=== PATIENT | male | born 1990 | race Hispanic/Latino ===

== ENCOUNTER → 2021-08-06 09:42 | Outpatient (CLI) | payer SELFPAY ==
--- NOTE | 2021-08-06 09:44 | RAD_ITS ---
STUDY: AIR CONTRAST ESOPHAGRAM AND UPPER GI SERIES REASON FOR EXAM: Male, 31 years old. K21.9 - Gastro-esophageal reflux disease without esophagitis FLUOROSCOPY TIME (if supplied): ( ) minutes/seconds TECHNIQUE: SINGLE CONTRAST AND AIR CONTRAST FLUOROSCOPIC IMAGES. COMPARISON: None. FINDINGS: The cervical esophagus demonstrates normal motility without aspiration. There is no stricture or extrinsic mass effect. No intraluminal polypoid mass is identified. The thoracic esophagus distends well without stricture or mucosal fold thickening. No mucosal ulcerations are identified. There is no extrinsic mass effect. There are no diverticula. No hiatal hernia or gastroesophageal reflux was identified. The stomach distends well without mucosal fold thickening or mucosal ulceration. There is no intraluminal mass. The duodenal bulb is freely distensible without deformity or ulceration. The duodenal sweep is normal in position and caliber. RAD/Upper GI w/BA Swallow IMPRESSION: Normal air-contrast upper GI series. Electronically Signed: Jeremiah Duncan MD at 12:52 EST , Service support ,
== END ==
LOC: RAD 09:43
PROVIDERS: Visit Provider Surgery
DX: K21.9 Gastro-esophageal reflux disease without esophagitis (principal); R13.10 Dysphagia, unspecified
CPT/HCPCS: 74246

== ENCOUNTER 2021-08-28 08:15 | Day surgery (SDC) | payer SELFPAY ==
[2021-08-28] VITALS (7 sets, daily range): BP systolic 89–98; BP diastolic 56–85; PULSE 56–68; RESP 16; TEMP 36.2–36.7; O2SAT 96–100; BMI 29.2
--- NOTE | 2021-08-28 08:35 | PCM.HP.BLA ---
History and Physical Date of Admission: 08/28/21 Date of Service: 07/25/21 MR#:[id number]:[id number]: ASHWIN TOSCANOep #:[id number]:1990 Provider:Dr. Prashanth Shaikh MDAge/Sex: 31/M [facility] Vital Signs 07/25/21 09:12 Height 5 ft 1 in Weight: 152 lb 8 oz BMI 28.8 BP 113/70 Blood Pressure Location Rt brachial Position Sitting Respiration 16 Pulse 70 Pulse Source NIBP Temp 97.7 F L Temp Source Temporal Pulse Oximetry (%) 97 Oxygen Delivery Method room air Intake Visit Reasons: Gastroesophageal reflux disease (GERD) Chief Complaint: GERD High Tension Tester Required: No Is patient in pain?: Yes (epigastric and throat burning ) Pain scale (1-10): 4 Allergies No Known Allergies Allergy (Verified 07/25/21 09:13) Medications dicyclomine 20 mg tablet ea PO 07/25/21 [History Confirmed 07/25/21] loperamide 2 mg capsule ea PO 07/25/21 [History Confirmed 07/25/21] omeprazole 40 mg capsule,delayed release ea PO 07/25/21 [History Confirmed 07/25/21] sucralfate 100 mg/mL oral suspension 5 ml PO QACHS ml 07/25/21 [History Confirmed 07/25/21] PFSH Medical History (Updated 07/25/21 @ 17:[address] Prashanth Shaikh MD) Diarrhea Gastroesophageal reflux disease Surgical History (Updated 07/25/21 @ 09:12 by Tayler Curran) No significant past surgical history Family History (Updated 07/25/21 @ 09:12 by Tayler Curran) Father No problems noted. HPI HPI HPI: ASHWIN PAREDES, is a 31 M, Czech-speaking only, who presents to the office today primary lady for complaints of reflux. 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 Tello Paredes's symptoms have been present for the last 2 years but have been progressing in severity and frequency. He states that multiple times a day he experiences burning and pain in his throat like phlegm developing there. He denies this occurring at any particular time of day but states that it is worse with eating carbohydrates or spicy foods. He does find himself needing to prop his head up in the evenings and will frequently awaken with a burning throat. He states that he feels almost like he is drowning when he wakes up with these symptoms. He notes approximately 23 pound weight loss over the last 6 months that has been unintentional but directly related to the symptoms. He additionally has had some cold?like symptoms and frequent upper respiratory tract infections. He repeatedly denies any experience of nausea or vomiting. Patient was initially sent to for consideration of possible biliary colic. However he denies any abdominal pain after eating and states this is clearly his throat. Added to this, he also denies any pain originating in his right upper quadrant and wrapping around to his back. Furthermore patient was sent with a complete abdominal ultrasound dated 06/13/2021 which demonstrated a gallbladder normal in size with no gallbladder wall thickening, no gallstones, and no sonographic Cano sign. ROS General General: No weight change, appetite, fatigue, colon cancer, breast cancer or weakness HEENT HEENT: No difficulty swallowing, eye injury, eye surgery, swollen glands or hoarseness Endo Endocrine: No thyroid disease, diabetes mellitus, thyroid cancer, Hair loss, heat intolerance or cold intolerance Cardio Cardiovascular: No murmur, pacemaker, heart disease, atrial fibrillation, high blood pressure, heart attack, heart stent, palpitations, shortness of breat with exertion or chest pain Psych Psychiatric: No depression, anxiety or hearing voices Resp Respiratory: No shortness of breath, No sleep apnea, No cough, No COPD, No asthma, No emphysema and No wheezing Gastro Gastrointestinal: Yes abdominal pain, No nausea or vomiting, Yes diarrhea, No constipation, No blood in stool, Yes acid reflux, No hemorrhoids, No ulcers, No gallbladder problem and No black,tarry stools [place]ma Hematologic: No blood thinners, No blood disorders, No bleeding, No anemia and No blood clots Neuro Neurologic: No weakness Exam Const General: cooperative, no acute distress and anxious Limitations: language barrier Resp Effort & Inspection: normal respiratory effort Auscultation: no rales, no rhonchi and no wheezes Cardio Rate: regular rate Rhythm: regular rhythm Heart Sounds: S1 normal and S2 normal GI Inspection: normal to inspection, non-distended, no obesity and no scars Palpation: soft and tender in the epigastrum (Mildly focally tender in the epigastrium with deep palpation) and other (No right upper quadrant tenderness); Cano's sign negative Assessment and Plan Assessment and Plan (1) Gastroesophageal reflux disease: Status: Acute Comment: This is a 31-year-old male who is presenting with a 2-year history of symptoms most suggestive of gastroesophageal reflux disease. There was some concern for possible biliary colic, however, the descriptions more closely match reflux and his exam is not supportive of a gallbladder source. Additionally, ultrasound imaging from June 2021 was normal for gallbladder anatomy. Regarding his reflux issues, patient states that he has had some relief of symptoms with taking Protonix but this is far from complete and simultaneously he has noted a progression of the symptoms for both their intensity and frequency. Therefore, I recommend we pursue a work-up of this reflux with radiographic imaging and endoscopy. Orders: Orders: Upper GI w/BA Swallow Today Plan - Dr. Prashanth Shiakh MD: ?Barium esophagram to be completed at earliest convenience ?EGD under local MAC with biopsies as necessary as well as pH probe placement Plan Details Other Orders: Orders: EGD with 48 pH probe Today Upper GI w/BA Swallow Today R13.10 I have re-examined the patient. There are no clinical changes since date of exam. 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 He continues to have a burning pain in his throat. He also confirms that he has not been on omeprazole for approximately 2 months and has been taking colestipol only for diarrhea. Therefore we will plan to proceed with diagnostic EGD and pH probe placement under local MAC today.
--- NOTE | 2021-08-28 09:00 | EGD_PTH ---
PATIENT: ASHWIN TOSCANO LOC: EN U#:[id number] AGE/SX: 31/M ROOM: RE08/28/[address]: Dr. Prashanth Shaikh MD : 1990 BED: DIS: 08/28/2021 SPEC #: [id number] RECD: 08/28/21 10:26 STATUS: AURELIANO EMILY #: [id number] CLAUDIA: 08/28/21 09:[address]: Prashanth Shaikh DEPT: SURGICAL PATHOLOGY RECD BY: Mera Felipe ENTERED: 08/28/21 10:57 SP TYPE: EGD BIOPSY OTHR DR: No Primary Care Phys Tissues: Gastric mucous membrane Procedures: Surgery Specimen Level IV HEADER OPERATION: EGD ([facility] [place]) with PH probe PRE-OP DIAGNOSIS: GERD TISSUE SUBMITTED: Antrum biopsy for H. pylori and path MICROSCOPIC DIAGNOSIS Antrum biopsy: Mild to moderate gastritis. See microscopic description and comment. SJ:jose 09/01/2021 COMMENT The results of immunohistochemistry for Helicobacter pylori will be reported separately ([id number]). MICROSCOPIC DESCRIPTION Slides are reviewed. The specimen shows fragments of gastric mucosa with chronic inflammatory cell infiltrates in the lamina propria consisting of lymphocytes and plasma cells, consistent with mild to moderate chronic gastritis. GROSS DESCRIPTION Received in fixative is one container labeled with the patient's name and designated antrum biopsy. The specimen consists of two irregular fragments of light moore soft tissue that in aggregate measure 0.5 x 0.3 x 0.1 cm. The specimen is totally submitted in one cassette. / AM:jose 08/28/21 TC:3 CPT: 43971
--- NOTE | 2021-08-28 09:00 | IMM_PTH ---
PATIENT: ASHWIN TOSCANO LOC: EN U#:[id number] AGE/SX: 31/M ROOM: RE08/28/[address]: Dr. Prashanth Shaikh MD : 1990 BED: DIS: 08/28/2021 SPEC #: [id number] RECD: 08/28/21 13:19 STATUS: AURELIANO EMILY #: [id number] CLAUDIA: 08/28/21 09:[address]: Prashanth Shaikh DEPT: IMMUNOHISTOCHEMISTRY RECD BY: Tracy Ba ENTERED: 08/28/21 13:20 SP TYPE: IMMUNO OTHR DR: No Primary Care Phys Tissues: Stomach, NOS Procedures: H Pylori (initial) PHYSICIAN & INSTITUTION [place] [id number] SPECIMEN INFORMATION: Tissue Source: Antrum biopsy Clinical Info: GERD Specimen Number: [id number] CPT code: 26150 METHODOLOGY: Deparaffinized sections of prefer/formalin-fixed tissue or PAP/DQ stained slides are incubated with monoclonal/polyclonal antibodies/oligonucleotide probes. Localization is made via biotin free immunoperoxidase method. Appropriate controls are performed and reacted as expected. Results on target cell population are indicated in the following table: RESULTS: ANTIBODY / CLONE RESULT H Pylori (polyclonal) negative These tests were developed and their performance characteristics determined by [facility]. They may not have been cleared or approved by the [place].S. Food and Drug Administration. The FDA has determined that such clearance or approval is not necessary. INTERPRETATION: Antrum biopsy: Negative for Helicobacter pylori organisms. GRAY:jose 09/01/2021
[2021-08-28] MEDS: Lactated Ringers 1,000 ML 30 ML IV (09:02)
--- NOTE | 2021-08-28 09:53 | OP.EGD_ITS ---
Patient Name: Maicol Lara Procedure Date: 08/28/2021 9:09 AM Date of : 1990 Age: 31 Procedure: Upper GI endoscopy Indications: Suspected esophageal reflux, Sore throat Providers: Prashanth Shaikh MD Medicines: See the Anesthesia note for documentation of the administered medications Patient Profile: Refer to note in patient chart for documentation of history and physical. Patient has symptoms of chronic throat burning. Complications: No immediate complications. Estimated blood loss: Minimal. Procedure: Pre-Anesthesia Assessment: - The heart rate, respiratory rate, oxygen saturations, blood pressure, adequacy of pulmonary ventilation, and response to care were monitored throughout the procedure. After obtaining informed consent, the endoscope was passed under direct vision. Throughout the procedure, the patient's blood pressure, pulse, and oxygen saturations were monitored continuously. The gastroscope was introduced through the mouth, and advanced to the second part of duodenum. The upper GI endoscopy was accomplished without difficulty. The patient tolerated the procedure well. Scope In: 9:36:00 AM Scope Out: 9:45:50 AM Total Procedure Duration Time 0 hours 9 minutes 50 seconds Findings: The first portion of the duodenum and second portion of the duodenum were normal. No biopsies or other specimens were collected for this exam. Localized mild inflammation characterized by erythema was found in the gastric antrum. Biopsies were taken with a cold forceps for histology. Biopsies were taken with a cold forceps for Helicobacter pylori cultures. Estimated blood loss was minimal. The exam of the stomach was otherwise normal. The Z-line was regular and was found 38 cm from the incisors. No biopsies or other specimens were collected for this exam. The BHATTI capsule with delivery system was introduced through the mouth and advanced into the esophagus, such that the BHATTI pH capsule was positioned 32 cm from the incisors, which was 6 cm proximal to the GE junction. The BHATTI pH capsule was then deployed and attached to the esophageal mucosa. The delivery system was then withdrawn. Endoscopy was utilized for probe placement and diagnostic evaluation. Impression: - Normal first portion of the duodenum and second portion of the duodenum. No specimens collected. - Gastritis. Biopsied. - Z-line regular, 38 cm from the incisors. No specimens collected. - The BHATTI pH capsule was deployed. Recommendation: - Discharge patient to home (via wheelchair). - Resume regular diet today. - Continue present medications. - Await pathology results. - Telephone my office for pathology results in 1 week. Procedure Code(s): --- Professional --- 99028, Esophagogastroduodenoscopy, flexible, transoral; with biopsy, single or multiple Diagnosis Code(s): --- Professional --- K29.70, Gastritis, unspecified, without bleeding J02.9, Acute pharyngitis, unspecified CPT copyright 2017 [employer] [place] [employer]. All rights reserved. The codes documented in this report are preliminary and upon hcc coders review may be revised to meet current compliance requirements. Prashanth Shaikh MD 08/28/2021 9:52:29 AM This report has been signed electronically. Number of Addenda: 0 Note Initiated On: 08/28/2021 9:09 AM
--- NOTE | 2021-08-28 09:53 | OP.CCLET_ITS ---
08/28/2021 No Primary Care Physician Re : Upper GI endoscopy procedure for Maicol Lara Dear Care Physician This procedure was performed on August. My impressions and recommendations are as follows: Impressions : - Normal first portion of the duodenum and second portion of the duodenum. No specimens collected. - Gastritis. Biopsied. - Z-line regular, 38 cm from the incisors. No specimens collected. - The [employer] pH capsule was deployed. Recommendations : - Discharge patient to home (via wheelchair). - Resume regular diet today. - Continue present medications. - Await pathology results. - Telephone my office for pathology results in 1 week. My findings are described in the full procedure note, which is enclosed. If I can be of further assistance, please feel free to contact me at Doctor phone number(s): , Work: . Sincerely, Prashanth Shaikh MD 08/28/2021 9:52:29 AM This report has been signed electronically.
== END 2021-08-28 11:32 ==
LOC: EN 08:24 → AC 08:24
PROVIDERS: Visit Provider Surgery
PROC: 0DJ08ZZ Inspection of Upper Intestinal Tract, Via Natural or Artificial Opening Endoscopic (ICD-10-PCS; CPT 43235; principal; 2021-08-28 08:55)
DX: K29.50 Unspecified chronic gastritis without bleeding (principal); J02.9 Acute pharyngitis, unspecified; K21.9 Gastro-esophageal reflux disease without esophagitis
CPT/HCPCS: 43239; 87426; 88305; 88342; J7120; J2405